=== PATIENT | female | born 1960 | race Caucasian/White ===

== ENCOUNTER 2024-09-26 15:28 | Emergency (ER) | payer BC, SELFPAY ==
[2024-09-26] VITALS (7 sets, daily range): BP systolic 122–186; BP diastolic 66–93; PULSE 66–89; TEMP 36.7; O2SAT 95–98; BMI 39.9
[2024-09-26 15:57] LABS: Bilirubin Urine Negative (Negative); Blood Urine Trace (Negative); Glucose Urine UA Negative (Normal); Ketones Urine Negative (Negative); Leukocyte Esterase Urine 1+ (Negative); Nitrate Urine Negative (Negative); Protein Urine Negative (Negative); Specific Gravity, Urine 1.007 (1.005-1.030); Urine Appearance Clear (CLEAR); Urine Color Yellow (Yellow); Urobilinogen Urine 0.2 mg/dL (Negative); pH Urine 7.5 (5-7)
[2024-09-26 15:59] LABS: Add Urine Microscopic? YES; Bacteria Urine None Seen /hpf; Hyaline Casts Urine 0-4 /lpf; RBC Urine 0-2 /hpf (0-2); Squamous Epithelial Cell Urine 0-5 /hpf (0-5); WBC Urine 0-5 /hpf (0-5)
[2024-09-26 16:06] LABS: Basophils # 0.1 10^3/uL (0.0-0.1); Basophils % 0.5 %; Eosinophils # 0.3 10^3/uL (0.0-0.8); Eosinophils % 2.8 %; Hematocrit 43.4 % (36-47); Lymphocytes # 2.8 10^3/uL (0.8-4.8); Lymphocytes % 30.8 %; Mean Corpuscular HGB Conc 32.9 g/dL (30-55); Mean Corpuscular Hemoglobin 31.4 pg (27-33); Mean Corpuscular Volume 95.4 fl (85-98); Mean Platelet Volume 9.3 fL (7.4-10.4); Monocytes # 0.5 10^3/uL (0.2-0.9); Monocytes % 4.9 %; Neutrophils # 5.55 10^3/uL (1.8-7.7); Neutrophils % 60.8 %; Nucleated Red Blood Cells % 0 %; Platelet Count 265 10^3/cmm (157-399); Red Blood Count 4.55 10^6/uL (3.85-5.65); Red Cell Distribution Width 12.4 % (12.1-15.1); White Blood Count 9.15 10^3/uL (3.29-11.43)
[2024-09-26] MEDS: sodium chloride 0.9% 1,000 ML 999 ML IV (16:20)
[2024-09-26 16:30] LABS: Alanine Aminotransferase 17 U/L (0-33); Albumin Level 4.6 g/dL (3.5-5.2); Alkaline Phosphatase 79 U/L (35-105); Aspartate Amino Transferase 24 U/L (0-32); Blood Urea Nitrogen 13 mg/dL (8-23); Calcium 9.6 mg/dL (8.5-10.5); Carbon Dioxide 25 mmol/L (22-29); Chloride 103 mmol/L (98-107); Creatinine Clr Calc Pharmacy 90.4005; Globulin 3.2 g/dL (1.3-4.6); Glomerular Filtration Rate 84.5 mL/min (90-130); Glucose 104 mg/dL (65-115); Magnesium 2.1 mg/dL (1.7-2.3); Osmolality Calculated 290 mOsm/kg (285-295); Sodium 140 mmol/L (136-145); Total Bilirubin 0.3 mg/dL (0.15-1.2); Total Protein 7.8 g/dL (6.6-8.7)
--- NOTE | 2024-09-26 16:42 | ECG_ITS ---
[facility] [facility] Test Date: 2024-09-26 Pat Name: Jessenia Kendall Department: Room: Gender: Female Placement Assistant: : [id number] Requested By: Aren Cartagena Order Number: [id number] Sara MD: Ramone Olivier M.D. Measurements Intervals [place] Rate: 82 P: 32 WV: 124 QRS: -26 QRSD: 95 T: 25 QT: 373 QTc: 436 Interpretive Statements SINUS RHYTHM BORDERLINE LEFT AXIS DEVIATION [QRS AXIS < -20] MODERATE VOLTAGE CRITERIA FOR LVH, CONSIDER NORMAL VARIANT [MEETS CRITERIA IN ONE OF: R(aVL), S(V1), R(V5), R(V5/V6)+S(V1)] INTERPRETATION BASED ON A DEFAULT AGE OF 40 YEARS No previous ECG available for comparison Electronically Signed On 09-27-2024 18:51:29 CDT by Ramone Olivier M.D. [email or web address]
--- NOTE | 2024-09-26 16:47 | XRR_ITS ---
PROCEDURE INFORMATION: Exam: XR Chest Exam date and time: 09/26/2024 5:01 PM Age: 64 years old Clinical indication: Shortness of breath; Dyspnea TECHNIQUE: Imaging protocol: Radiologic exam of the chest. Views: 1 view. COMPARISON: No relevant prior studies available. FINDINGS: Lungs: Unremarkable. No consolidation. Pleural spaces: Unremarkable. No pleural effusion. No pneumothorax. Heart/Mediastinum: Unremarkable. No cardiomegaly. Bones/joints: Unremarkable. XR/XR chest 1V portable [id number] IMPRESSION: No acute findings.
--- NOTE | 2024-09-26 16:50 | ED_ITS ---
HPI - General Adult 2 General: Chief complaint: General Medical Stated complaint: SOB, light headed, n/d/f Time Seen by Provider: 09/26/24 15:38 History of Present Illness: 64-year-old female ambulatory to the [facility] department along with her who acts as an independent story and. Patient reports today she is just not felt quite right. She has had some feeling of sort of lightheadedness, nausea without vomiting, 2 soft semiformed stools, a vague sense of dyspnea. She did check her blood pressure at home and reports that it was slightly high. Her blood pressure tends to run around 140 but she is not on any medication for it. She does report elevated cholesterol but is trying to treat it without medications. She does not report any chest discomfort, neck discomfort, jaw pain, arm pain. Nothing seems to make it better or worse. No symptoms of UTI. No cardiopulmonary disease that she is aware of. Denies any headache. No vertigo. No strokelike symptoms. Associated symptoms: Deny chest pain, headache(s), rash, syncope or vomiting Related Data Home Medications ?Medication ?Instructions ?Recorded ?Confirmed levothyroxine 100 mcg tablet 100 mcg PO DAILY 09/26/24 09/26/24 Previous Rx's ?Medication ?Instructions ?Recorded hydralazine 10 mg tablet 10 mg PO Q4H PRN hypertensio n #30 09/26/24 tabs Allergies Allergy/AdvReac Type Severity Reaction Status Date / Time gluten Allergy Unknown Verified 09/26/24 15:46 Review of Systems 2 General: Reports: 10 or more systems reviewed and unremarkable except in HPI and below Const: Denies: fever(s), chills or body aches Eyes: Denies: change in vision ENMT: Denies: throat pain Card: Denies: chest pain, edema or syncope Resp: Denies: productive cough GI: Denies: abdominal pain or vomiting : Denies: flank pain, dysuria or urinary frequency Musc: Denies: neck pain, back pain, extremity pain or extremity swelling Skin/Breast: Denies: rash or erythema Neuro: Denies: headache(s), numbness in extremities, weakness in extremities, lack of coordination or difficulty walking [facility] ED 2 Female Reproductive History: Date of last menstrual period: 09/19/20 Physical Exam 2 Const: COMMON NORMALS: no limitations, alert and well nourished EXAM LIMITATIONS: no altered mental status HENMT: COMMON NORMALS: normocephalic, atraumatic and external ears normal H EAD & SCALP: normocephalic and atraumatic EXTERNAL EAR: Yes external ears normal MOUTH: no muffled voice Eye: COMMON NORMALS: EOMs intact bilaterally, conjunctivae normal and no scleral icterus CONJUNCTIVA: Yes conjunctivae normal Neck/C-Spine: COMMON NORMALS: no JVD GENERAL: Yes normal visual inspection and Yes trachea midline Resp: COMMON NORMALS: normal respiratory effort, No use of accessory muscles and clear to auscultation bilaterally AUSCULTATION: clear to auscultation bilaterally Cardio: COMMON NORMALS: no JVD, regular rate, regular rhythm, S1 normal heart sound present, S2 normal heart sound present, No clicks present (Cardio), No murmurs present (Cardio), No rub (Cardio) and Peripheral pulses 2+ throughout RATE: regular rate RHYTHM: regular rhythm HEART SOUNDS: S1 normal heart sound present and S2 normal heart sound present PERIPHERAL PULSES: Peripheral pulses 2+ throughout GI: COMMON NORMALS: Soft to palpation and non-tender PALPATION: Yes Soft to palpation and No Guarding due to palpation present (GI) Extremity: COMMON NORMALS: normal to inspection, full ROM and no pedal edema Neuro: COMMON NORMALS: moves all extremities, no focal motor deficits and no sensory deficits noted SENSORIUM/ORIENTATION: Yes alert SPEECH: speech normal Psych: COMMON NORMALS: mental status grossly normal, Normal thought process present, cooperative, normal affect and speech normal SPEECH: Yes normal speech THOUGHT PROCESS: Normal thought process present Skin: COMMON NORMALS: no rashes or lesions noted, turgor normal and no jaundice GENERAL SKIN EXAM: no rashes or lesions noted and turgor normal Course 2 Vital Signs: Vital signs: Vital Signs Temperature 98.1 F 09/26/24 15:35 Pulse Rate 68 09/26/24 18:00 Blood Pressure 124/69 09/26/24 18:00 Pulse Oximetry 95 09/26/24 18:00 Oxygen Delivery Me thod Room Air 09/26/24 15:35 [facility] - General Adult Medical Decision Making Patient presents with nonspecific symptoms as described above. Differential diagnosis includes hypertensive urgency, blood sugar problem, electrolyte disturbance, atypical coronary syndrome, subclinical infection (e.g. UTI), anxiety, orthostasis, dehydration, large differential diagnosis. Low suspicion for stroke. No report of any GI bleeding. Patient is well-appearing and nontoxic on exam but does have pretty significant hypertension. We repeated it 4 times and she still has hypertension. We will go ahead and treat with some labetalol and clonidine while we are doing her workup. Update CBC, CMP, UA all reassuring EKG, EP interpretation: Sinus rhythm, rate 82, LVH suggested, isolated T wave changes in lead III and V3, minimal J-point depression on repolarization. Chemistry reassuring Troponin 11. Repeat troponin 9.3 Chest x-ray 1 view: EP interpretation: Normal cardiomediastinal silhouette, clear lungs, no effusions, no pneumothorax Suspect this is a hypertensive urgency because the patient felt so much better once we gave her a dose of labetalol and 0.1 mg of clonidine. Low suspicion for ACS at this point in time. LVH suggest she may have chronic hypertension. Patient is not on any medications. After discussing all of her findings, our plan is to put her on hydralazine 10 mg every 4 hours as needed blood pressure greater than 140 systolic or greater than 90 diastolic. Limit salt intake to 2 g or less. No caffeine or alcohol. Exercise daily. Blood pressure journal and follow-up with PCP. Return precautions provided. Patient and in agreement with plan. Lab Data 09/26/24 16:00 09/26/24 16:00 Laboratory Results WBC 9.15 10^3/uL (3.29-11.43) 09/26/24 16:00 RBC 4.55 10^6/uL (3.85-5.65) 09/26/24 16:00 Hgb 14.30 g/dL (11.27-16.99) 09/26/24 16:00 Hct 43.4 % (36-47) 09/26/24 16:00 MCV 95.4 fl (85-98) 09/26/24 16:00 MCH 31.4 pg (27-33) 09/26/24 16:00 MCHC 32.9 g/dL (30-55) 09/26/24 16:00 RDW 12.4 % (12.1-15.1) 09/26/24 16:00 Plt Count 265 10^3/cmm (157-399) 09/26/24 16:00 MPV 9.3 fL (7.4-10.4) 09/26/24 16:00 Neut % (Auto) 60.8 % 09/26/24 16:00 Lymph % (Auto) 30.8 % 09/26/24 16:00 Villalba % (Auto) 4.9 % 09/26/24 16:00 Eos % (Auto) 2.8 % 09/26/24 16:00 Baso % (Auto) 0.5 % 09/26/24 16:00 Neut # (Auto) 5.55 10^3/uL (1.8-7.7) 09/26/24 16:00 Lymph # (Auto) 2.8 10^3/uL (0.8-4.8) 09/26/24 16:00 Villalba # (Auto) 0.5 10^3/uL (0.2-0.9) 09/26/24 16:00 Eos # (Auto) 0.3 10^3/uL (0.0-0.8) 09/26/24 16:00 Baso # (Auto) 0.1 10^3/uL (0.0-0.1) 09/26/24 16:00 Nucleated RBC % (auto) 0 % 09/26/24 16:00 Nucleated RBCs # 0.0 /100WBC 09/26/24 16:00 Sodium 140 mmol/L (136-145) 09/26/24 16:00 Potassium 4.0 mmol/L (3.5-5.1) 09/26/24 16:00 Chloride 103 mmol/L (98-107) 09/26/24 16:00 Carbon Dioxide 25 mmol/L (22-29) 09/26/24 16:00 Anion Gap 16.0 (5-19) 09/26/24 16:00 BUN 13 mg/dL (8-23) 09/26/24 16:00 Creatinine 0.7 mg/dL (0.5-0.9) 09/26/24 16:00 GFR Calculation 84.5 mL/min (90-130) L 09/26/24 16:00 Glucose 104 mg/dL (65-115) 09/26/24 16:00 Calculated Osmolality 290 mOsm/kg (285-295) 09/26/24 16:00 Calcium 9.6 mg/dL (8.5-10.5) 09/26/24 16:00 Magnesium 2.1 mg/dL (1.7-2.3) 09/26/24 16:00 Total Bilirubin 0.3 mg/dL (0.15-1.2) 09/26/24 16:00 AST 24 U/L (0-32) 09/26/24 16:00 ALT 17 U/L (0-33) 09/26/24 16:00 Alkaline Phosphatase 79 U/L (35-105) 09/26/24 16:00 Troponin T Baseline 11 ng/L (0-10) H 09/26/24 16:00 Troponin T 120 Minute 9.36 ng/L (0-10) 09/26/24 18:00 Delta Troponin T -1.64 ABS# (0-10) L 09/26/24 18:00 Total Protein 7.8 g/dL (6.6-8.7) 09/26/24 16:00 Albumin 4.6 g/dL (3.5-5.2) 09/26/24 16:00 Globulin 3.2 g/dL (1.3-4.6) 09/26/24 16:00 Urine Color Yellow (Yellow) 09/26/24 15:50 Urine Appearance Clear (CLEAR) 09/26/24 15:50 Urine pH 7.5 (5-7) 09/26/24 15:50 Ur Specific [place] 1.007 (1.005-1.030) 09/26/24 15:50 Urine Protein Negative (Negative) 09/26/24 15:50 Urine Glucose (UA) Negative (Normal) 09/26/24 15:50 Urine Ketones Negative (Negative) 09/26/24 15:50 Urine Blood Trace (Negative) A 09/26/24 15:50 Urine Nitrate Negative (Negative) 09/26/24 15:50 Urine Bilirubin Negative (Negative) 09/26/24 15:50 Urine Urobilinogen 0.2 mg/dL (Negative) 09/26/24 15:50 Ur Leukocyte Esterase 1+ (Negative) A 09/26/24 15:50 Urine RBC 0-2 /hpf (0-2) 09/26/24 15:50 Urine WBC 0-5 /hpf (0-5) 09/26/24 15:50 Ur Squamous Epith Cells 0-5 /hpf (0-5) 09/26/24 15:50 Amorphous Sediment Not Reportable 09/26/24 15:50 Urine Bacteria None seen /hpf (NONE) 09/26/24 15:50 Hyaline Casts 0-4 /lpf H 09/26/24 15:50 XR interpretation done by ED provider, pending radiology final review Discharge Plan Discharge Patient Disposition: Home Clinical Impression: Accelerated hypertension, LVH (left ventricular hypertrophy) Condition: Stable Prescriptions: New hydralazine 10 mg tablet 10 mg PO Q4H PRN (Reason: hypertension) Qty: 30 0RF Rx Instructions: every 4 hours as needed for SBP >140 or DBP >90 No Action levothyroxine 100 mcg tablet 100 mcg PO DAILY Discharge Orders: Discharge ED (Routine); Ordered 09/26/24 Ordered By: Aren Cartagena Patient Instructions: Hypertensive Crisis (ED), Hypertension (ED) Activity Restrictions/Additional Instructions: 1. You may use 10 mg of hydralazine every 4 hours as needed if your systolic blood pressure (top number) is greater than 140 or your diastolic blood pressure (bottom number) is greater than 90. Eat 2 g of salt or less daily. Exercise daily. Avoid caffeine and alcohol. Keep a blood pressure journal and follow-up with your primary care doctor as soon as you get back to [place]. 2. Your EKG suggest that the left side your heart is slightly thickened. This can suggest chronic hypertension or other problems. You may consider an echocardiogram sometime in the future. Please read all discharge instructions and abide by recommendations and return precautions. Make an appointment to follow-up with your primary care doctor as directed for follow-up. Return to ER if getting worse or other emergent symptoms. Print Language: Senegalese Coding Level of Care Code ED Service Inspector for Deejay Pearce
[2024-09-26 17:11] LABS: Troponin(5th) Baseline 11 ng/L (0-10)
[2024-09-26] MEDS: cloNIDine 0.1 mg Tablet PO (17:39)
[2024-09-26] MEDS: labetalol 5 mg/mL SDV 20mL 20 MG IVP (17:39)
[2024-09-26 18:31] LABS: Troponin 5 2HR 9.36 ng/L (0-10)
[2024-09-26 18:32] LABS: Troponin 5 2HR Delta -1.64 ABS# (0-10)
== END 2024-09-26 18:46 | disposition home or self-care (01) ==
PROVIDERS: Emergency Provider Emergency Medicine
DX: I51.7 Cardiomegaly (principal); I10 Essential (primary) hypertension
CPT/HCPCS: 36415; 71045; 80053; 81001; 83735; 84484; 85025; 93005; 96361; 96374; 99285; J3490; J7030; J9999